=== PATIENT | female | born 1995 | race Caucasian/White ===

== ENCOUNTER → 2020-04-10 19:52 | Observation (INO) ==
[2020-04-10 19:12] LABS: Amorphous Sediment,Urine Few per hpf (None-Few); Bacteria,Urine Few per hpf (None-Few); Bilirubin,Urine Negative (Negative); Blood,Urine Negative (Negative); Clarity,Urine Turbid (Clear); Color,Urine Yellow (Yellow); Glucose,Urine (UA) Normal (Normal); Ketones,Urine Negative (Negative); Leukocyte Esterase,Urine Large (Negative); Mucus,Urine Few per lpf (None-Few); Nitrite,Urine Negative (Negative); PH,Urine 6.5 pH Units (5.0-8.0); Protein,Urine Trace mg/dL (Neg-Trace); Specific Gravity,Urine 1.021 (1.010-1.025); Squamous Epithelial Cell,Urine Moderate per hpf (None-Few); Urobilinogen,Urine Normal (Normal)
[~2020-04-10 19:52] MED LIST: Nitrofurantoin (BID) 100 MG CAPSULE PO ONE
[2020-04-10 20:30] LABS: Candida DNA DETECTED (Not Detect); Gardnerella DNA DETECTED (Not Detect); Trichomonas DNA Not Detected (Not Detect)
== END | disposition home or self-care (01) ==
LOC: 1NENULAB
PROVIDERS: ADMIT Student in an Organized Health Care Education/Training Program; ATTEND Student in an Organized Health Care Education/Training Program

== ENCOUNTER 2020-05-16 03:57 | Inpatient (IN) ==
[2020-05-16] MEDS ORDERED: Metoclopramide 10 MG/2 ML VIAL IVP PRN (04:10)
[2020-05-16] MEDS ORDERED: Naloxone 0.4 MG/ML INJ IVP PRN (04:10)
[2020-05-16] MEDS ORDERED: Lidocaine 1% 20 ML MDV INFILT PRN (04:10)
[2020-05-16] MEDS ORDERED: Famotidine 20 MG/2 ML VIAL IVP PRN (04:10)
[2020-05-16 05:27] LABS: Basophils % 0.1 %; Eosinophils # 0.1 K/mcL (0.0-0.6); Eosinophils % 0.8 %; Hematocrit 34.1 % (35.3-44.9); Hemoglobin 10.9 g/dL (11.5-15.4); Immature Granulocytes % 0.7 % (0-4); Lymphocytes # 1.9 K/mcL (0.6-4.6); Mean Corpuscular Hemoglobin 29.8 pg (28.0-33.3); Mean Corpuscular Volume 93.2 fL (83.0-100.0); Mean Platelet Volume 11.4 fL (9.4-12.4); Monocytes % 8.7 %; Neutrophils # 8.1 K/mcL (1.6-8.9); Platelet Count 177 K/mcL (140-400); Red Blood Count 3.66 M/mcL (3.82-4.97); Red Cell Distribution Width 13.9 % (11.5-14.5); Segmented Neutrophils % 72.7 %; White Blood Count 11.2 K/mcL (4.3-11.1)
[2020-05-16 05:34] LABS: Amphetamine Screen,Urine Negative ng/mL (Cutoff=1000); Barbiturate Screen,Urine Negative ng/mL (Cutoff=200); Benzodiazepines Screen,Urine Negative ng/mL (Cutoff=200); Cannabinoid Screen,Urine Negative ng/mL (Cutoff = 50); Cocaine Screen,Urine Negative ng/mL (Cutoff= 300); Opiate Screen,Urine Negative ng/mL (Cutoff=300); Phencyclidine Screen,Urine Negative ng/mL (Cutoff=25)
[2020-05-16 06:00] LABS: Influenza A PCR Negative (Negative); Influenza B PCR Negative (Negative); Resp. Syncytial Virus PCR Negative (Negative)
[2020-05-16] MEDS ORDERED: Oxytocin 20 units/ LR 1000 mL 20 UNIT/1,000 ML BAG IVC SCH (06:00)
[2020-05-16 06:09] LABS: SARS-CoV-2 by PCR (In House) Negative (Negative)
[2020-05-16] MEDS: Ringers Solution, Lactated 1,000 ML IVC SCH ×2 (06:29→13:43)
[2020-05-16] MEDS ORDERED: Ropivacaine/PF 0.2% 20 ML VIAL EP ONE (07:02)
[2020-05-16] MEDS ORDERED: EPHEDrine 50 MG/ML VIAL IVP PRN (07:02)
[2020-05-16] MEDS ORDERED: *HR* FentaNYL (PF) 100 MCG/2 ML VIAL EP ONE (07:02)
[2020-05-16] MEDS ORDERED: *HR* FentaNYL (PF) 250 MCG/5 ML VIAL ONE (07:05)
[2020-05-16] MEDS ORDERED: Epidural Premix (fent/bupiv) 110 ML EP SCH (07:15)
[2020-05-16] MEDS ORDERED: *HR* Nalbuphine 10 MG/ML AMPUL IV ONE (13:28)
[2020-05-16] MEDS ORDERED: Ondansetron 4 MG/2 ML VIAL ONE (18:20)
[2020-05-16] MEDS ORDERED: Ondansetron 4 MG/2 ML VIAL IVP PRN (18:27)
[2020-05-17] MEDS ORDERED: Ringers Solution, Lactated 1,000 ML IVC SCH (01:30)
[2020-05-17] MEDS ORDERED: Metoclopramide 10 MG/2 ML VIAL IVP ONE (01:30)
[2020-05-17] MEDS ORDERED: Famotidine 20 MG/2 ML VIAL IVP ONE (01:30)
[2020-05-17] MEDS ORDERED: CeFAZolin 2,000 MG/50 ML BAG IVPB ONE (01:30)
[2020-05-17] MEDS ORDERED: Azithromycin 500 MG in 0.9 % Sodium Chloride 250 ML IVPB ONE (01:32)
[2020-05-17] MEDS ORDERED: Chloroprocaine/PF 20 ML VIAL INFILT ONE (01:38)
[2020-05-17] MEDS ORDERED: Acetaminophen IV 1,000 MG/100 ML BAG IVPB ONE (01:41)
[2020-05-17] MEDS ORDERED: Ondansetron 4 MG/2 ML VIAL ONE (01:41)
[2020-05-17] MEDS ORDERED: Ondansetron 4 MG/2 ML VIAL IVP PRN ×2 (01:46→05:47)
[2020-05-17] MEDS ORDERED: *HR* HYDROmorphone PF 0.5 MG/0.5 ML SYRINGE IVP PRN (01:46)
[2020-05-17] MEDS ORDERED: *HR* Morphine Sulfate/PF 10 MG/10 ML AMPUL ONE (01:49)
[2020-05-17] MEDS ORDERED: *HR* FentaNYL (PF) 100 MCG/2 ML VIAL ONE (01:49)
[2020-05-17] MEDS ORDERED: EPHEDrine 50 MG/ML VIAL ONE (02:07)
[2020-05-17] MEDS ORDERED: *HR* Oxytocin 10 UNIT/ML VIAL IM ONE (02:09)
[2020-05-17] MEDS ORDERED: Oxytocin 20 units/ LR 1000 mL 20 UNIT/1,000 ML BAG IVC SCH (05:47)
[2020-05-17] MEDS ORDERED: Naloxone 0.4 MG/ML INJ IVP PRN (05:47)
[2020-05-17] MEDS ORDERED: Simethicone 80 MG TAB.CHEW PO PRN (05:47)
[2020-05-17] MEDS ORDERED: Sennosides 8.6 MG TABLET PO PRN (05:47)
[2020-05-17] MEDS ORDERED: Metoclopramide 10 MG/2 ML VIAL IVP PRN (05:47)
[2020-05-17] MEDS: Ibuprofen 600 MG TABLET PO PRN ×2 (07:48→15:21)
[2020-05-17] MEDS: Prenatal Vit/FA 1 EACH TABLET PO SCH (07:49)
[2020-05-17] MEDS: *HR* OxyCODONE Immed Rel 5 MG TABLET PO PRN ×2 (13:18→19:59)
[2020-05-17] MEDS: Acetaminophen 325 MG TABLET PO PRN (15:21)
[2020-05-17] MEDS ORDERED: Rho Immune Globulin 1,500 UNIT SYRINGE IM ONE (20:45)
[2020-05-18] MEDS: Acetaminophen 325 MG TABLET PO PRN ×2 (00:15→08:44)
[2020-05-18] MEDS: Ibuprofen 600 MG TABLET PO PRN ×2 (00:15→08:45)
[2020-05-18 04:25] LABS: Basophils % 0.1 %; Eosinophils % 0.1 %; Hematocrit 25.8 % (35.3-44.9); Lymphocytes # 1.4 K/mcL (0.6-4.6); Lymphocytes % 7.3 %; Mean Corpuscular HGB Conc 31.4 g/dL (31.6-35.5); Mean Corpuscular Volume 95.6 fL (83.0-100.0); Mean Platelet Volume 11.4 fL (9.4-12.4); Monocytes % 5.1 %; Platelet Count 113 K/mcL (140-400); Red Cell Distribution Width 14.4 % (11.5-14.5); Segmented Neutrophils % 86.4 %
[2020-05-18 04:28] LABS: Hemoglobin 8.1 g/dL (11.5-15.4); Neutrophils # 16.5 K/mcL (1.6-8.9); White Blood Count 19.1 K/mcL (4.3-11.1)
[2020-05-18 07:46] VITALS: BP 103/63
[2020-05-18] MEDS: Prenatal Vit/FA 1 EACH TABLET PO SCH (08:45)
== END 2020-05-18 16:50 | disposition home or self-care (01) | DRG 540 ==
LOC: 1NENULAB 03:57 → 1NENUOBS 05-17 05:42
PROVIDERS: ADMIT Obstetrics & Gynecology; ATTEND Obstetrics & Gynecology